=== PATIENT | female | born 1980 | race Caucasian/White ===

== ENCOUNTER 2023-10-06 16:27 | Outpatient (CLI) | payer OTHER, SELFPAY ==
--- NOTE | ~2023-10-06 | MR_ITS ---
MRI of the lumbar spine Clinical History: Radiculopathy Technique: Axial T2-weighted images, and sagittal T1-weighted, T2-weighted, and and T2 fat-sat images were acquired. Findings: There is no fracture or subluxation of the lumbar spine. Vertebral bodies maintain normal h eight. No suspicious bone marrow signal abnormality seen. At L1-L2, L2-L3, L3-L4, L4-L5, there is no disc bulge or herniation. There is minimal facet joint hyp ertrophy at these levels. No spinal canal stenosis or neural foraminal narrowing at these levels. At L5-S1, there is a central the left paracentral disc herniation, which mildly compresses the thecal sac, and probably impinges the descending left-sided S1-S2 level nerve root. Neural foramina at this level demonstrate moderate narrowing bilaterally. Paravertebral soft tissues are unremarkable. Impression: Central to left paracentral disc herniation at L5-S1 which compresses the thecal sac and probably imp inges the descending left-sided S1-S2 level nerve root. Moderate bilateral neural foraminal narrowing at L5-S1. Reviewed, dictated and finalized at [facility]. Impression: Central to left paracentral disc herniation at L5-S1 which compresses the theca l sac and probably impinges the descending left-sided S1-S2 level nerve root. Moderate bilateral neural foraminal narrowing at L5-S1.
== END 2023-10-06 16:28 | disposition home or self-care (01) ==
LOC: ANHIMG 16:36
DX: M51.26 Other intervertebral disc displacement, lumbar region (principal)
CPT/HCPCS: 72148